=== PATIENT | female | born 1945 | race Caucasian/White ===

== ENCOUNTER 2018-04-29 07:13 | Day surgery (SDC) | payer MEDICARE, BC ==
[2018-04-29] MEDS ORDERED: LIDOCAINE 100 MG SYRINGE (08:57)
[2018-04-29] MEDS ORDERED: PROPOFOL 40 ML (08:57)
[2018-04-29] MEDS ORDERED: FENTAnyl 50 MCG/ML VIAL (08:58)
[2018-04-29] MEDS ORDERED: hydrALAzine 20 MG INJ (09:13)
== END 2018-04-29 18:20 | disposition home or self-care (01) ==
LOC: GIL 07:13
DX: K31.7 Polyp of stomach and duodenum (principal); D12.3 Benign neoplasm of transverse colon; K29.70 Gastritis, unspecified, without bleeding; K64.8 Other hemorrhoids; I10 Essential (primary) hypertension; I25.10 Atherosclerotic heart disease of native coronary artery without angina pectoris; Z95.0 Presence of cardiac pacemaker; E03.9 Hypothyroidism, unspecified
CPT/HCPCS: 43239; 88307; 88312